=== PATIENT | female | born 1960 | race Caucasian/White ===

== ENCOUNTER → 2020-07-03 | Outpatient (CLI) | payer OTHER ==
[~2020-07-03] MED LIST: LASIX TAB 20 MG20 MG PO; LEVOFLOXACIN500 MG PO; METHOCARBAMOL500 MG PO; POTASSIUM CITR10 MEQ PO; VIBRAMYCIN100 MG PO
[2020-07-03 16:18] LABS: HEMOGLOBIN 12.3 gm/dl (12.3-15.3); RED BLOOD COUNT 4.55 M/UL (4.00-5.10)
== END ==
LOC: LAB 15:51
PROVIDERS: Physician Assistant Medical
DX: D72.829 Elevated white blood cell count, unspecified (principal); R94.4 Abnormal results of kidney function studies
CPT/HCPCS: 36415; 80053; 85027